=== PATIENT | female | born 1965 | race Caucasian/White ===

== ENCOUNTER 2017-10-07 08:03 | Day surgery (SDC) | payer BC, OTHER ==
[~2017-10-07] VITALS: Ht 157.5 cm; Wt 63.5 kg
[~2017-10-07 08:03] MED LIST: Naprosyn500 MG PO; Ultram50 MG PO; VICODIN 5-3001 EACH PO
== END 2017-10-07 10:16 | disposition home or self-care (01) ==
LOC: ORSCMMR 08:03
PROVIDERS: Internal Medicine Gastroenterology
PROC: 0DBK8ZX Excision of Ascending Colon, Via Natural or Artificial Opening Endoscopic, Diagnostic (ICD-10-PCS; principal; 2017-10-07 09:00)
PROC: 0DBN8ZX Excision of Sigmoid Colon, Via Natural or Artificial Opening Endoscopic, Diagnostic (ICD-10-PCS; principal; 2017-10-07 09:00)
PROC: 0DB48ZX Excision of Esophagogastric Junction, Via Natural or Artificial Opening Endoscopic, Diagnostic (ICD-10-PCS; principal; 2017-10-07 09:00)
PROC: 0DBL8ZX Excision of Transverse Colon, Via Natural or Artificial Opening Endoscopic, Diagnostic (ICD-10-PCS; principal; 2017-10-07 09:00)
PROC: 0DB68ZX Excision of Stomach, Via Natural or Artificial Opening Endoscopic, Diagnostic (ICD-10-PCS; principal; 2017-10-07 09:00)
PROC: 0DB98ZX Excision of Duodenum, Via Natural or Artificial Opening Endoscopic, Diagnostic (ICD-10-PCS; principal; 2017-10-07 09:00)
PROC: 0DB58ZX Excision of Esophagus, Via Natural or Artificial Opening Endoscopic, Diagnostic (ICD-10-PCS; principal; 2017-10-07 09:00)
PROC: 0DBB8ZX Excision of Ileum, Via Natural or Artificial Opening Endoscopic, Diagnostic (ICD-10-PCS; 2017-10-07 09:00)
DX: R10.13 Epigastric pain (principal); K21.0 Gastro-esophageal reflux disease with esophagitis; K29.50 Unspecified chronic gastritis without bleeding; K63.5 Polyp of colon; K57.30 Diverticulosis of large intestine without perforation or abscess without bleeding; Z12.11 Encounter for screening for malignant neoplasm of colon; Z80.0 Family history of malignant neoplasm of digestive organs; Z87.891 Personal history of nicotine dependence
CPT/HCPCS: 88305; 88342; J7120

== ENCOUNTER 2017-12-21 11:26 | Emergency (ER) | payer BC ==
[~2017-12-21] VITALS: Ht 157.5 cm; Wt 61.2 kg
[2017-12-21] MEDS ORDERED: Hydrocodone-Ap1 EA23 PO (11:58)
[2017-12-21] MEDS ORDERED: OXYC5 PO (11:59)
[2017-12-21] MEDS ORDERED: PRED10 PO (12:52)
[2017-12-21] MEDS ORDERED: Keflex500 MG PO (12:52)
== END 2017-12-21 13:00 | disposition home or self-care (01) ==
LOC: ER 11:26
DX: L53.9 Erythematous condition, unspecified (principal); M79.89 Other specified soft tissue disorders; T50.995A Adverse effect of other drugs, medicaments and biological substances, initial encounter; Z87.891 Personal history of nicotine dependence
CPT/HCPCS: 93971; 99284

== ENCOUNTER 2025-07-15 05:58 | Emergency (ER) | payer OTHER ==
[~2025-07-15] VITALS: Ht 157.5 cm; Wt 61.2 kg
[~2025-07-15 05:58] MED LIST changes: +Hydrocodone-Ap1 EA23 PO; +Keflex500 MG PO; +OXYC5 PO; +PRED10 PO
[2025-07-15] MEDS ORDERED: Dexamethasone Sod Phos 10 MG/ML 1ML VIAL IV ONE (06:40)
[2025-07-15] MEDS ORDERED: Lidocaine 4% 1 Patch TOP ONE (06:45)
[2025-07-15] MEDS ORDERED: Ketorolac Tromethamine 15mg Vial IV ONE (06:45)
[2025-07-15] MEDS ORDERED: Morphine Sulfate 4 MG/1 ML Injection IV ONE (07:50)
[2025-07-15] MEDS ORDERED: CYCL10 PO (08:24)
[2025-07-15] MEDS ORDERED: LIDOCAINE1 EAC1 TOP (08:24)
[2025-07-15 09:00] VITALS: BP 114/77
== END 2025-07-15 09:08 | disposition home or self-care (01) ==
LOC: ER 05:58
DX: M25.552 Pain in left hip (principal); M54.50 Low back pain, unspecified; Z87.891 Personal history of nicotine dependence
CPT/HCPCS: 73502; 96374; 96375; 99283-25; A9270; J1100; J1885; J2270